=== PATIENT | male | born 1995 | race African-American/Black ===

== ENCOUNTER 2017-06-20 17:37 | Emergency (ER) | payer SELFPAY ==
[2017-06-20] MEDS ORDERED: Lidocaine 1% w/Epinephrine 1:100K 20 ML VIAL ONE (19:24)
[2017-06-20] MEDS ORDERED: Diazepam 5 MG TAB ONE (19:29)
[2017-06-20] MEDS ORDERED: Adacel (T-DAP) 0.5 ML VIAL ONE (20:34)
== END 2017-06-20 20:50 | disposition home or self-care (01) ==
LOC: ERS 17:37
DX: K04.7 Periapical abscess without sinus (principal)
CPT/HCPCS: 41800; 90471; 90715; J2001